=== PATIENT | female | born 1945 | race Caucasian/White ===

== ENCOUNTER 2022-12-31 23:33 | Inpatient (IN) | payer OTHER ==
[~2022-12-31] VITALS: Ht 162.6 cm; Wt 75.2 kg
[2023-01-01] VITALS (7 sets, daily range): BP systolic 95–154; BP diastolic 47–74; PULSE 57–85; RESP 18–20; TEMP 97.3–98.6; O2SAT 91–96
[2023-01-01] MEDS ORDERED: MORPHINE SULFATE INJ 2 MG/ml SYRG IV PRN (01:45)
[2023-01-01] MEDS ORDERED: NITROGLYCERIN 0.4 MG SL TAB SL PRN (01:45)
[2023-01-01] MEDS ORDERED: ONDANSETRON HCL 4 MG/2 ML VIAL IV PRN (01:45)
[2023-01-01] MEDS ORDERED: DOCUSATE SOD 100 MG CAP PO PRN (01:45)
[2023-01-01] MEDS ORDERED: DEXTROSE (50%) 50ML SYRG IV PRN (01:45)
[2023-01-01] MEDS ORDERED: ACETAMINOPHEN 325 MG TAB PO PRN (01:45)
[2023-01-01] MEDS ORDERED: OMEP10CA5 PO (03:34)
[2023-01-01] MEDS ORDERED: PARO1TAB33 PO (03:34)
[2023-01-01] MEDS ORDERED: GABA-1250 PO (03:34)
[2023-01-01] MEDS ORDERED: OXYB5TAB24 PO (03:34)
[2023-01-01] MEDS ORDERED: ATOR20TA50 PO (03:34)
[2023-01-01] MEDS ORDERED: ATEN50TA PO (03:34)
[2023-01-01] MEDS ORDERED: DULO-141 PO (03:34)
[2023-01-01] MEDS ORDERED: NAP500T PO (03:35)
[2023-01-01] MEDS ORDERED: BUPR150T8 PO (03:36)
[2023-01-01] MEDS ORDERED: CHOL20007 PO (03:43)
[2023-01-01] MEDS ORDERED: CALC600T49 PO (03:45)
[2023-01-01 05:01] LABS: Amphetamine Screen, Urine Neg (NEGATIVE); Barbiturate Scree,Urine Neg (NEGATIVE); Benzodiazephine Screen, Urine Neg (NEGATIVE); Cannabinoid Screen, Urine Neg (NEGATIVE); Cocaine Screen, Urine Neg (NEGATIVE); Opiate Scree,Urine Neg (NEGATIVE); Phencyclidine Screen, Urine Neg (NEGATIVE)
[2023-01-01 05:17] LABS: Urine Bacteria NONE SEEN /hpf (None Seen); Urine Blood Negative /uL (Negative); Urine Clarity Clear (Clear); Urine Color Colorless (Yellow); Urine Protein, UAD Negative (Negative); Urine Specific Gravity 1.003 (1.001-1.035); Urine Urobilinogen Normal (Negative); Urine WBC 6 /hpf (0 - 5); Urine pH 5.5 (5.0-8.0)
[2023-01-01] MEDS: SODIUM CHLORIDE 0.9% 1,000 ML IV SCH ×2 (06:30→17:05)
[2023-01-01 06:39] LABS: Chloride 108 mmol/L (98-107); Potassium 3.7 mmol/L (3.5-5.1); Sodium 142 mmol/L (136-145)
[2023-01-01 06:40] LABS: Anion Gap 6.1 (5-15); Calcium 8.8 mg/dL (8.7-10.4); Carbon Dioxide 27.9 mmol/L (20-30)
[2023-01-01 06:45] LABS: BUN/Creatinine Ratio 7.9 (10.0-20.0); Blood Urea Nitrogen 5 mg/dL (9-23); Glucose 92 mg/dL (74-106)
[2023-01-01] MEDS: CEFTRIAXONE SODIUM 2 GM in D5W 5% 100 ML IV SCH (07:00)
[2023-01-01] MEDS: InsuLIN REG 1unit/0.01ml Soln (100units/ml) SC SCH ×4 (07:00→21:36)
[2023-01-01] MEDS: ACCU-CHEK COMFORT CURVE STRIP VI SCH ×4 (07:03→21:35)
[2023-01-01 07:07] LABS: Basophils # (auto) 0.1 10 ^3/uL (0-0.2); Basophils % (auto) 0.9 % (0.0-2.0); Eosinophils # (auto) 0.2 10 ^3/uL (0-0.8); Eosinophils % (auto) 2.4 % (0.0-7.0); Hematocrit 39.2 % (36.0-46.0); Lymphocytes # (auto) 1.5 10 ^3/uL (0.4-5.4); Lymphocytes % (auto) 19.1 % (10.0-50.0); Mean Corpuscular Hemoglobin 25.9 pg (28.0-32.0); Mean Corpuscular Hgb Conc. 33.1 g/dL (32.0-36.0); Mean Corpuscular Volume 78.1 fL (80.0-100.0); Monocytes # (auto) 0.6 10 ^3/uL (0-1.3); Monocytes % (auto) 7.4 % (0.0-12.0); Neutrophils # (auto) 5.5 10 ^3/uL (1.6-8.6); Neutrophils % (auto) 70.2 % (37.0-80.0); Nucleated Red Blood Cells % 0.4 %; Red Blood Cells 5.02 10^6/uL (4.0-5.20); Red Cell Distribution Width 16.4 % (11.8-14.3); White Blood Cell 7.9 10^3/uL (4.4-10.8)
[2023-01-01] MEDS ORDERED: VANCOMYCIN PER PHARMACY 0 MG IV SCH (09:00)
[2023-01-01] MEDS ORDERED: VANCOMYCIN 1GM/250ML 250 ML IV ONE (09:30)
[2023-01-01] MEDS: DULoxetine HCL 30 MG CAP PO SCH (09:39)
[2023-01-01] MEDS: ATENOLOL 50 MG TAB PO SCH (09:40)
[2023-01-01] MEDS: FAMOTIDINE 20 MG TAB PO SCH (09:40)
[2023-01-01] MEDS: OXYBUTYNIN CHL 5 MG TAB PO SCH ×2 (09:40→21:27)
[2023-01-01 09:49] LABS: CRP High Sensitivity 1.28 mg/dL (<1.0)
[2023-01-01 09:59] LABS: Erythrocyte Sedimentation Rate 6 mm/hr (0-20)
[2023-01-01] MEDS ORDERED: PANTOPRAZOLE 40 MG/10 ML VIAL INJ IV SCH (10:00)
[2023-01-01] MEDS: GABAPENTIN 300 MG CAP PO SCH ×2 (14:27→21:28)
[2023-01-01] MEDS: ATORVASTATIN 20 MG TAB PO SCH (21:28)
[2023-01-01] MEDS: MUPIROCIN 2% OINT 15gm or 22gm FOR MRSA NARES EACHNOSTRI SCH (21:33)
[2023-01-02] VITALS (7 sets, daily range): BP systolic 101–140; BP diastolic 53–116; PULSE 61–74; RESP 18–20; TEMP 97.1–98; O2SAT 64–99
[2023-01-02] MEDS: SODIUM CHLORIDE 0.9% 1,000 ML IV SCH ×2 (04:23→16:58)
[2023-01-02] MEDS: GABAPENTIN 300 MG CAP PO SCH ×3 (06:00→22:28)
[2023-01-02] MEDS: CEFTRIAXONE SODIUM 2 GM in D5W 5% 100 ML IV SCH (06:11)
[2023-01-02] MEDS: ACCU-CHEK COMFORT CURVE STRIP VI SCH ×4 (06:25→22:33)
[2023-01-02] MEDS: InsuLIN REG 1unit/0.01ml Soln (100units/ml) SC SCH ×4 (06:26→22:00)
[2023-01-02 06:36] LABS: Anion Gap 7.1 (5-15); Calcium 8.7 mg/dL (8.5-10.1); Carbon Dioxide 24.9 mmol/L (20-30); Chloride 110 mmol/L (98-107); Potassium 3.5 mmol/L (3.5-5.1); Sodium 142 mmol/L (136-145)
[2023-01-02 06:42] LABS: Basophils # (auto) 0.1 10 ^3/uL (0-0.2); Eosinophils # (auto) 0.3 10 ^3/uL (0-0.8); Glucose 132 mg/dL (74-106); Lymphocytes # (auto) 1.1 10 ^3/uL (0.4-5.4); Monocytes # (auto) 0.6 10 ^3/uL (0-1.3); White Blood Cell 8.8 10^3/uL (4.4-10.8)
[2023-01-02 06:44] LABS: BUN/Creatinine Ratio 8.8 (10.0-20.0); Basophils % (auto) 0.9 % (0.0-2.0); Blood Urea Nitrogen < 5 mg/dL (9-23); Eosinophils % (auto) 3.1 % (0.0-7.0); Hematocrit 39.1 % (36.0-46.0); Hemoglobin 12.6 g/dL (12.2-16.2); Lymphocytes % (auto) 12.4 % (10.0-50.0); Mean Corpuscular Hemoglobin 25.8 pg (28.0-32.0); Mean Corpuscular Hgb Conc. 32.2 g/dL (32.0-36.0); Mean Corpuscular Volume 80.2 fL (80.0-100.0); Monocytes % (auto) 7.1 % (0.0-12.0); Neutrophils # (auto) 6.8 10 ^3/uL (1.6-8.6); Neutrophils % (auto) 76.5 % (37.0-80.0); Nucleated Red Blood Cells % 0.1 %; Red Blood Cells 4.88 10^6/uL (4.0-5.20); Red Cell Distribution Width 16.4 % (11.8-14.3)
[2023-01-02 07:10] LABS: Prothrombin Time 10.5 sec (9.3-11.8)
[2023-01-02] MEDS ORDERED: BUPIVACAINE 0.25% INJ 50ML VIAL ONE (08:16)
[2023-01-02] MEDS ORDERED: LIDOCAINE 1% HCL (LOCAL ANESTH.) INJ 20ML MDV ONE (08:16)
[2023-01-02] MEDS ORDERED: VANCOMYCIN 1GM/250ML 250 ML IV SCH (09:00)
[2023-01-02] MEDS ORDERED: MEPERIDINE HCL (25 MG/ML) 1ML VIAL ONE (09:05)
[2023-01-02] MEDS ORDERED: MIDAZOLAM HCL 2MG/2ML 2ml VIAL (1mg/ml) ONE (09:05)
[2023-01-02] MEDS ORDERED: fentaNYL CITRATE 100 MCG/2 ML VL ONE (09:05)
[2023-01-02] MEDS ORDERED: ACCU-CHEK COMFORT CURVE STRIP VI ONE (09:30)
[2023-01-02] MEDS ORDERED: ONDANSETRON HCL 4 MG/2 ML VIAL IV PRN (09:30)
[2023-01-02] MEDS ORDERED: ePHEDrine SULFATE 50 MG/ML AMP IV PRN (09:30)
[2023-01-02] MEDS ORDERED: MORPHINE SULFATE 4 MG/ML SYR/VIAL IV PRN (09:30)
[2023-01-02] MEDS ORDERED: LABETALOL HCL 5 MG/ML 4ML SYRINGE IV PRN (09:30)
[2023-01-02] MEDS ORDERED: MIDAZOLAM HCL 2MG/2ML 2ml VIAL (1mg/ml) IV PRN (09:30)
[2023-01-02] MEDS: OXYBUTYNIN CHL 5 MG TAB PO SCH ×2 (10:00→22:28)
[2023-01-02] MEDS: DULoxetine HCL 30 MG CAP PO SCH (10:00)
[2023-01-02] MEDS: MUPIROCIN 2% OINT 15gm or 22gm FOR MRSA NARES EACHNOSTRI SCH ×2 (10:00→22:33)
[2023-01-02] MEDS: ENOXAPARIN SOD 40 MG/0.4 ML SYRINGE SC SCH (10:00)
[2023-01-02] MEDS: FAMOTIDINE 20 MG TAB PO SCH (10:00)
[2023-01-02] MEDS: ATENOLOL 50 MG TAB PO SCH (10:00)
[2023-01-02] MEDS ORDERED: DexAMETHasone SOD PHOS 10MG/1ML VIAL INJ ONE (10:18)
[2023-01-02] MEDS ORDERED: PROPOFOL 10 MG/ML 20 ML IV ONE (10:18)
[2023-01-02] MEDS: VANCOMYCIN 1GM/250ML 250 ML IV SCH (18:30)
[2023-01-02] MEDS: ATORVASTATIN 20 MG TAB PO SCH (22:28)
[2023-01-02] MEDS: HYDROcodone-ACET 5/325MG TAB PO PRN (22:29)
[2023-01-03 05:00] VITALS: BP 122/68; PULSE 94; RESP 20; TEMP 98; O2SAT 98
[2023-01-03] MEDS: CEFTRIAXONE SODIUM 2 GM in D5W 5% 100 ML IV SCH (05:54)
[2023-01-03] MEDS: GABAPENTIN 300 MG CAP PO SCH ×3 (05:54→21:47)
[2023-01-03] MEDS: InsuLIN REG 1unit/0.01ml Soln (100units/ml) SC SCH ×4 (06:13→21:58)
[2023-01-03] MEDS: ACCU-CHEK COMFORT CURVE STRIP VI SCH ×4 (06:13→21:57)
[2023-01-03] MEDS: HYDROcodone-ACET 5/325MG TAB PO PRN ×2 (06:14→12:57)
[2023-01-03 07:02] LABS: Anion Gap 7.3 (5-15); Calcium 8.9 mg/dL (8.7-10.4); Carbon Dioxide 26.7 mmol/L (20-30); Chloride 106 mmol/L (98-107); Potassium 3.5 mmol/L (3.5-5.1); Sodium 140 mmol/L (136-145)
[2023-01-03 07:08] LABS: BUN/Creatinine Ratio 8.6 (10.0-20.0); Blood Urea Nitrogen 5 mg/dL (9-23); Glucose 127 mg/dL (74-106)
[2023-01-03 07:41] LABS: Basophils # (auto) 0 10 ^3/uL (0-0.2); Basophils % (auto) 0.3 % (0.0-2.0); Eosinophils # (auto) 0 10 ^3/uL (0-0.8); Eosinophils % (auto) 0.3 % (0.0-7.0); Hemoglobin 11.5 g/dL (12.2-16.2); Lymphocytes # (auto) 0.8 10 ^3/uL (0.4-5.4); Lymphocytes % (auto) 6.9 % (10.0-50.0); Mean Corpuscular Hemoglobin 25.8 pg (28.0-32.0); Mean Corpuscular Hgb Conc. 32.9 g/dL (32.0-36.0); Mean Corpuscular Volume 78.5 fL (80.0-100.0); Monocytes # (auto) 0.7 10 ^3/uL (0-1.3); Monocytes % (auto) 6.5 % (0.0-12.0); Neutrophils # (auto) 9.6 10 ^3/uL (1.6-8.6); Nucleated Red Blood Cells % 0.1 %; Red Blood Cells 4.46 10^6/uL (4.0-5.20); Red Cell Distribution Width 16.1 % (11.8-14.3); White Blood Cell 11.2 10^3/uL (4.4-10.8)
[2023-01-03 09:00] VITALS: BP 124/56; PULSE 97; RESP 12; TEMP 98.4; O2SAT 95
[2023-01-03] MEDS: SODIUM CHLORIDE 0.9% 1,000 ML IV SCH (09:29)
[2023-01-03] MEDS: VANCOMYCIN 1GM/250ML 250 ML IV SCH (09:29)
[2023-01-03] MEDS: ENOXAPARIN SOD 40 MG/0.4 ML SYRINGE SC SCH (09:30)
[2023-01-03] MEDS: OXYBUTYNIN CHL 5 MG TAB PO SCH ×2 (09:30→21:47)
[2023-01-03] MEDS: FAMOTIDINE 20 MG TAB PO SCH (09:30)
[2023-01-03] MEDS: DULoxetine HCL 30 MG CAP PO SCH (09:30)
[2023-01-03] MEDS: ATENOLOL 50 MG TAB PO SCH (09:32)
[2023-01-03] MEDS: MUPIROCIN 2% OINT 15gm or 22gm FOR MRSA NARES EACHNOSTRI SCH ×2 (09:33→21:57)
[2023-01-03 13:00] VITALS: BP 146/59; PULSE 82; RESP 16; TEMP 97.4; O2SAT 95
[2023-01-03 17:00] VITALS: BP 130/48; PULSE 63; RESP 14; TEMP 98.2; O2SAT 98
[2023-01-03 20:00] VITALS: PULSE 62; RESP 20; O2SAT 97
[2023-01-03] MEDS: ATORVASTATIN 20 MG TAB PO SCH (21:47)
[2023-01-03 22:00] VITALS: BP 134/59; PULSE 62; RESP 20; TEMP 98.5; O2SAT 97
[2023-01-04 05:00] VITALS: BP 106/84; PULSE 61; RESP 18; TEMP 98.1; O2SAT 96
[2023-01-04] MEDS: CEFTRIAXONE SODIUM 2 GM in D5W 5% 100 ML IV SCH (06:20)
[2023-01-04] MEDS: GABAPENTIN 300 MG CAP PO SCH ×3 (06:20→21:56)
[2023-01-04] MEDS: ACCU-CHEK COMFORT CURVE STRIP VI SCH ×4 (06:37→22:04)
[2023-01-04] MEDS: HYDROcodone-ACET 5/325MG TAB PO PRN ×3 (06:37→16:58)
[2023-01-04] MEDS: InsuLIN REG 1unit/0.01ml Soln (100units/ml) SC SCH ×4 (06:37→22:00)
[2023-01-04 07:31] LABS: Eosinophils # (auto) 0.1 10 ^3/uL (0-0.8); Eosinophils % (auto) 0.6 % (0.0-7.0); Hemoglobin 11.3 g/dL (12.2-16.2)
[2023-01-04 07:33] LABS: Basophils # (auto) 0.1 10 ^3/uL (0-0.2); Basophils % (auto) 0.7 % (0.0-2.0); Hematocrit 34.4 % (36.0-46.0); Lymphocytes % (auto) 11.4 % (10.0-50.0); Mean Corpuscular Hemoglobin 25.9 pg (28.0-32.0); Mean Corpuscular Volume 78.4 fL (80.0-100.0); Monocytes % (auto) 10.7 % (0.0-12.0); Neutrophils % (auto) 76.6 % (37.0-80.0); Red Blood Cells 4.38 10^6/uL (4.0-5.20); Red Cell Distribution Width 15.9 % (11.8-14.3); White Blood Cell 9.1 10^3/uL (4.4-10.8)
[2023-01-04 08:10] LABS: Chloride 107 mmol/L (98-107); Potassium 3.1 mmol/L (3.5-5.1); Sodium 141 mmol/L (136-145)
[2023-01-04 08:11] LABS: Anion Gap 7.3 (5-15); Calcium 8.8 mg/dL (8.5-10.1); Carbon Dioxide 26.7 mmol/L (20-30)
[2023-01-04 08:16] LABS: BUN/Creatinine Ratio 10.9 (10.0-20.0); Blood Urea Nitrogen 6 mg/dL (9-23); Glucose 94 mg/dL (74-106)
[2023-01-04 09:00] VITALS: BP 110/51; PULSE 56; RESP 15; TEMP 97.6; O2SAT 95
[2023-01-04] MEDS: FAMOTIDINE 20 MG TAB PO SCH (10:51)
[2023-01-04] MEDS: DULoxetine HCL 30 MG CAP PO SCH (10:51)
[2023-01-04] MEDS: CLOPIDOGREL BISULFATE 75 MG TAB PO SCH (10:51)
[2023-01-04] MEDS: OXYBUTYNIN CHL 5 MG TAB PO SCH ×2 (10:51→21:54)
[2023-01-04] MEDS: ENOXAPARIN SOD 40 MG/0.4 ML SYRINGE SC SCH (10:52)
[2023-01-04] MEDS: ATENOLOL 50 MG TAB PO SCH (10:52)
[2023-01-04] MEDS: MUPIROCIN 2% OINT 15gm or 22gm FOR MRSA NARES EACHNOSTRI SCH ×2 (10:54→22:04)
[2023-01-04] MEDS: VANCOMYCIN 1GM/250ML 250 ML IV SCH (11:47)
[2023-01-04 13:00] VITALS: BP 113/48; PULSE 70; RESP 16; TEMP 97.2; O2SAT 95
[2023-01-04 17:00] VITALS: BP 98/74; PULSE 61; RESP 15; TEMP 98.6; O2SAT 95
[2023-01-04 20:00] VITALS: PULSE 78; RESP 22; O2SAT 98
[2023-01-04] MEDS ORDERED: POTASSIUM CHL 20 Meq TABLET PO ONE (21:15)
[2023-01-04] MEDS: ATORVASTATIN 20 MG TAB PO SCH (21:54)
[2023-01-04 22:00] VITALS: BP 118/89; PULSE 78; RESP 22; TEMP 98.4; O2SAT 98
[2023-01-05] VITALS (8 sets, daily range): BP systolic 116–141; BP diastolic 55–81; PULSE 54–76; RESP 16–20; TEMP 98.1–98.3; O2SAT 92–98
[2023-01-05] MEDS: VANCOMYCIN 1GM/250ML 250 ML IV SCH ×2 (03:49→20:37)
[2023-01-05] MEDS: CEFTRIAXONE SODIUM 2 GM in D5W 5% 100 ML IV SCH (05:36)
[2023-01-05] MEDS: GABAPENTIN 300 MG CAP PO SCH ×3 (06:06→23:00)
[2023-01-05] MEDS: ACCU-CHEK COMFORT CURVE STRIP VI SCH ×4 (06:09→23:00)
[2023-01-05] MEDS: InsuLIN REG 1unit/0.01ml Soln (100units/ml) SC SCH ×4 (06:10→23:00)
[2023-01-05] MEDS: HYDROcodone-ACET 5/325MG TAB PO PRN ×2 (10:37→18:02)
[2023-01-05] MEDS: DULoxetine HCL 30 MG CAP PO SCH (10:37)
[2023-01-05] MEDS: ATENOLOL 50 MG TAB PO SCH (10:38)
[2023-01-05] MEDS: OXYBUTYNIN CHL 5 MG TAB PO SCH ×2 (10:38→23:00)
[2023-01-05] MEDS: ENOXAPARIN SOD 40 MG/0.4 ML SYRINGE SC SCH (10:38)
[2023-01-05] MEDS: FAMOTIDINE 20 MG TAB PO SCH (10:38)
[2023-01-05] MEDS: CLOPIDOGREL BISULFATE 75 MG TAB PO SCH (10:38)
[2023-01-05] MEDS: MUPIROCIN 2% OINT 15gm or 22gm FOR MRSA NARES EACHNOSTRI SCH ×2 (10:40→23:02)
[2023-01-05] MEDS ORDERED: BACDST PO (12:12)
[2023-01-05] MEDS ORDERED: ATOR20TA50 PO (12:12)
[2023-01-05] MEDS ORDERED: CLOP75TA70 PO (12:12)
[2023-01-05] MEDS: ATORVASTATIN 20 MG TAB PO SCH (23:00)
[2023-01-06] MEDS: HYDROcodone-ACET 5/325MG TAB PO PRN ×3 (03:27→17:17)
[2023-01-06 05:00] VITALS: BP 121/80; PULSE 64; RESP 16; TEMP 98.2; O2SAT 93
[2023-01-06] MEDS: GABAPENTIN 300 MG CAP PO SCH ×2 (05:00→14:00)
[2023-01-06] MEDS: ACCU-CHEK COMFORT CURVE STRIP VI SCH ×3 (06:09→17:00)
[2023-01-06] MEDS: InsuLIN REG 1unit/0.01ml Soln (100units/ml) SC SCH ×3 (06:30→17:00)
[2023-01-06 08:00] VITALS: PULSE 55; RESP 18; O2SAT 98
[2023-01-06 09:00] VITALS: BP 138/73; PULSE 58; RESP 19; TEMP 97.4; O2SAT 98
[2023-01-06] MEDS: ATENOLOL 50 MG TAB PO SCH ×2 (10:00→17:16)
[2023-01-06] MEDS: MUPIROCIN 2% OINT 15gm or 22gm FOR MRSA NARES EACHNOSTRI SCH (10:00)
[2023-01-06] MEDS: FAMOTIDINE 20 MG TAB PO SCH (10:24)
[2023-01-06] MEDS: OXYBUTYNIN CHL 5 MG TAB PO SCH (10:25)
[2023-01-06] MEDS: DULoxetine HCL 30 MG CAP PO SCH (10:25)
[2023-01-06] MEDS: CLOPIDOGREL BISULFATE 75 MG TAB PO SCH (10:25)
[2023-01-06] MEDS: ENOXAPARIN SOD 40 MG/0.4 ML SYRINGE SC SCH (10:25)
[2023-01-06 13:00] VITALS: BP 129/54; PULSE 57; RESP 19; TEMP 97.9; O2SAT 95
[2023-01-06] MEDS ORDERED: VANCOMYCIN 1GM/250ML 250 ML IV SCH (13:00)
[2023-01-06 17:00] VITALS: BP 157/62; PULSE 56; RESP 19; TEMP 97.5; O2SAT 96
[2023-01-06 20:00] VITALS: PULSE 53; RESP 20; O2SAT 95
== END 2023-01-06 22:00 | disposition home health service (06) | DRG 617 ==
LOC: UNDOADMIN 01-01 01:31 → WEST WING 01-01 01:31
PROVIDERS: ADMIT Nurse Practitioner Family; ATTEND Hospitalist
PROC: 0Y6M0ZC Detachment at Right Foot, Partial 3rd Ray, Open Approach (ICD-10-PCS; principal; 2023-01-02 09:08)
DX: E11.69 Type 2 diabetes mellitus with other specified complication (principal); L03.115 Cellulitis of right lower limb; M86.171 Other acute osteomyelitis, right ankle and foot; N39.0 Urinary tract infection, site not specified; E11.65 Type 2 diabetes mellitus with hyperglycemia; I70.201 Unspecified atherosclerosis of native arteries of extremities, right leg; I10 Essential (primary) hypertension; Z86.14 Personal history of Methicillin resistant Staphylococcus aureus infection; Z89.429 Acquired absence of other toe(s), unspecified side
CPT/HCPCS: 36415; 73630; 73718; 80048; 80061; 80202; 80307; 81001; 82962; 83036; 85025; 85610; 85652; 85730; 86141; 87040; 87070; 87075; 87077; 87081; 87186; 87205; 93005; 93925; 97110; 97163; 97530; G0378; J0696; J1100; J1815; J2001; J2250; J2704; J3490; J7060

== ENCOUNTER 2023-03-25 03:27 | Inpatient (IN) | payer BC, OTHER ==
[~2023-03-25] VITALS: Ht 160 cm; Wt 71.4 kg
[~2023-03-25 03:27] MED LIST: ATEN50TA PO; ATOR20TA50 PO; BACDST PO; BUPR150T8 PO; CALC600T49 PO; CHOL20007 PO; CLOP75TA70 PO; DULO-141 PO; GABA-1250 PO; NAP500T PO; OMEP10CA5 PO; OXYB5TAB24 PO; PARO1TAB33 PO
[2023-03-26] VITALS (8 sets, daily range): BP systolic 124–154; BP diastolic 34–106; PULSE 71–92; RESP 17–20; TEMP 97.9–99.1; O2SAT 92–100
[2023-03-26] MEDS ORDERED: ACETAMINOPHEN 325 MG TAB PO PRN (01:15)
[2023-03-26] MEDS ORDERED: MORPHINE SULFATE INJ 2 MG/ml SYRG IV PRN (01:15)
[2023-03-26] MEDS ORDERED: hydrALAZINE HCL 10 MG TAB PO PRN (01:15)
[2023-03-26] MEDS ORDERED: DEXTROSE (50%) 50ML SYRG IV PRN (01:15)
[2023-03-26] MEDS ORDERED: ONDANSETRON HCL 4 MG/2 ML VIAL IV PRN (01:15)
[2023-03-26] MEDS ORDERED: VANCOMYCIN PER PHARMACY 0 MG IV SCH (01:15)
[2023-03-26] MEDS ORDERED: HYDROcodone-ACET 5/325MG TAB PO PRN (01:15)
[2023-03-26] MEDS: InsuLIN REG 1unit/0.01ml Soln (100units/ml) SC SCH ×4 (07:00→22:00)
[2023-03-26] MEDS ORDERED: VANCOMYCIN 1GM/250ML 250 ML IV ONE (07:30)
[2023-03-26] MEDS: ACCU-CHEK COMFORT CURVE STRIP VI SCH ×4 (09:17→22:00)
[2023-03-26] MEDS: cefTRIAXone 1GM/50ML D5W 50 ML IV SCH (09:19)
[2023-03-26 10:40] LABS: Basophils # (auto) 0.1 10 ^3/uL (0-0.2); Eosinophils # (auto) 0.2 10 ^3/uL (0-0.8); Hemoglobin 11.2 g/dL (12.2-16.2); Monocytes # (auto) 0.6 10 ^3/uL (0-1.3); White Blood Cell 8.7 10^3/uL (4.4-10.8)
[2023-03-26 10:42] LABS: Basophils % (auto) 0.7 % (0.0-2.0); Eosinophils % (auto) 2.3 % (0.0-7.0); Hematocrit 34.7 % (36.0-46.0); Lymphocytes # (auto) 0.9 10 ^3/uL (0.4-5.4); Lymphocytes % (auto) 9.8 % (10.0-50.0); Mean Corpuscular Hgb Conc. 32.2 g/dL (32.0-36.0); Mean Corpuscular Volume 74.7 fL (80.0-100.0); Monocytes % (auto) 6.4 % (0.0-12.0); Neutrophils % (auto) 80.8 % (37.0-80.0); Red Blood Cells 4.64 10^6/uL (4.0-5.20); Red Cell Distribution Width 17.7 % (11.8-14.3)
[2023-03-26 10:45] LABS: Chloride 112 mmol/L (98-107); Sodium 143 mmol/L (136-145)
[2023-03-26 10:46] LABS: Anion Gap 6 (5-15); Calcium 8.9 mg/dL (8.5-10.1); Carbon Dioxide 25 mmol/L (20-30)
[2023-03-26 10:51] LABS: BUN/Creatinine Ratio 15.6 (10.0-20.0); Blood Urea Nitrogen 10 mg/dL (9-23); Glucose 101 mg/dL (74-106)
[2023-03-26 16:16] LABS: CRP High Sensitivity 3.1 mg/dL (<1.0)
[2023-03-26 16:17] LABS: Erythrocyte Sedimentation Rate 25 mm/hr (0-20)
[2023-03-26] MEDS: SODIUM CHLORIDE 0.9% 1,000 ML IV SCH (16:55)
[2023-03-27] VITALS (7 sets, daily range): BP systolic 110–182; BP diastolic 62–86; PULSE 64–96; RESP 17–18; TEMP 36.6; O2SAT 93–98
[2023-03-27] MEDS ORDERED: VANCOMYCIN 1GM/250ML 250 ML IV SCH (04:00)
[2023-03-27] MEDS: InsuLIN REG 1unit/0.01ml Soln (100units/ml) SC SCH ×3 (06:10→17:00)
[2023-03-27] MEDS: ACCU-CHEK COMFORT CURVE STRIP VI SCH ×3 (06:10→17:07)
[2023-03-27 06:19] LABS: Basophils # (auto) 0.1 10 ^3/uL (0-0.2); Eosinophils # (auto) 0.3 10 ^3/uL (0-0.8); Hemoglobin 10.9 g/dL (12.2-16.2); Monocytes # (auto) 0.6 10 ^3/uL (0-1.3)
[2023-03-27 06:22] LABS: Basophils % (auto) 0.8 % (0.0-2.0); Eosinophils % (auto) 3.6 % (0.0-7.0); Hematocrit 33.9 % (36.0-46.0); Lymphocytes % (auto) 13.4 % (10.0-50.0); Mean Corpuscular Hgb Conc. 32.2 g/dL (32.0-36.0); Mean Corpuscular Volume 74.6 fL (80.0-100.0); Neutrophils # (auto) 5.4 10 ^3/uL (1.6-8.6); Neutrophils % (auto) 74.2 % (37.0-80.0); Red Blood Cells 4.55 10^6/uL (4.0-5.20); Red Cell Distribution Width 17.7 % (11.8-14.3); White Blood Cell 7.3 10^3/uL (4.4-10.8)
[2023-03-27 06:23] LABS: Chloride 111 mmol/L (98-107); Potassium 4.3 mmol/L (3.5-5.1); Sodium 142 mmol/L (136-145)
[2023-03-27 06:24] LABS: Anion Gap 8 (5-15); Carbon Dioxide 23 mmol/L (20-30)
[2023-03-27 06:25] LABS: Calcium 7.4 mg/dL (8.5-10.1)
[2023-03-27 06:30] LABS: Blood Urea Nitrogen 9 mg/dL (9-23); Glucose 113 mg/dL (74-106)
[2023-03-27 06:31] LABS: INR 1.01 (0.9-1.15); Partial Thromboplastin Time 36.6 SEC (24.5-34.5); Prothrombin Time 10.6 sec (9.3-11.8)
[2023-03-27] MEDS: SODIUM CHLORIDE 0.9% 1,000 ML IV SCH (10:05)
[2023-03-27] MEDS: cefTRIAXone 1GM/50ML D5W 50 ML IV SCH (10:05)
[2023-03-27] MEDS ORDERED: CLOP75TA70 PO (12:00)
[2023-03-27] MEDS ORDERED: ATOR20TA50 PO (12:00)
[2023-03-27] MEDS ORDERED: BACDST PO (12:03)
[2023-03-27] MEDS ORDERED: LIDOCAINE 1% (LOCAL ANESTH.) PF 5ml SDV ID ONE (13:00)
[2023-03-27] MEDS ORDERED: ATORVASTATIN 20 MG TAB PO SCH (22:00)
[2023-03-27] MEDS ORDERED: DAKINS QUARTER STR 0.125% (NaHypochlorite) 473 ML TOPICAL SOL TOP SCH (22:00)
[2023-03-27] MEDS ORDERED: SODIUM CHLOR 0.9% PF (SALINE LOCK) 10ML VIAL/SYR IV SCH (22:00)
[2023-03-28] MEDS ORDERED: ASPirin-EC 81 mg tab PO SCH (10:00)
== END 2023-03-27 19:00 | disposition home health service (06) | DRG 623 ==
LOC: TELE-CENTR 03-26 01:24
PROVIDERS: ADMIT Nurse Practitioner Family; ATTEND Nurse Practitioner Family
PROC: 0JBQ0ZZ Excision of Right Foot Subcutaneous Tissue and Fascia, Open Approach (ICD-10-PCS; principal; 2023-03-27)
PROC: 0JBR0ZZ Excision of Left Foot Subcutaneous Tissue and Fascia, Open Approach (ICD-10-PCS; 2023-03-27)
PROC: 02HV33Z Insertion of Infusion Device into Superior Vena Cava, Percutaneous Approach (ICD-10-PCS; 2023-03-27)
PROC: B548ZZA Ultrasonography of Superior Vena Cava, Guidance (ICD-10-PCS; 2023-03-27)
DX: E11.621 Type 2 diabetes mellitus with foot ulcer (principal); M86.171 Other acute osteomyelitis, right ankle and foot; E11.69 Type 2 diabetes mellitus with other specified complication; E78.5 Hyperlipidemia, unspecified; E11.51 Type 2 diabetes mellitus with diabetic peripheral angiopathy without gangrene; E11.40 Type 2 diabetes mellitus with diabetic neuropathy, unspecified; I11.0 Hypertensive heart disease with heart failure; J44.9 Chronic obstructive pulmonary disease, unspecified; E11.42 Type 2 diabetes mellitus with diabetic polyneuropathy; L97.522 Non-pressure chronic ulcer of other part of left foot with fat layer exposed; L97.512 Non-pressure chronic ulcer of other part of right foot with fat layer exposed
CPT/HCPCS: 36415; 36569; 71045; 73718; 80048; 80061; 82962; 83036; 85025; 85610; 85652; 85730; 86141; 87040; 87077; 87186; 87205; 93926; 97163; G0378; J0696

== ENCOUNTER 2023-04-06 15:00 | Emergency (ER) | payer OTHER ==
[~2023-04-06] VITALS: Ht 160 cm; Wt 67.9 kg
[2023-04-06 16:06] LABS: Basophils # (auto) 0.1 10 ^3/uL (0-0.2); Eosinophils # (auto) 0.2 10 ^3/uL (0-0.8); Eosinophils % (auto) 2.4 % (0.0-7.0); Hematocrit 35.9 % (36.0-46.0); Hemoglobin 11.2 g/dL (12.2-16.2); Lymphocytes # (auto) 1.1 10 ^3/uL (0.4-5.4); Lymphocytes % (auto) 14.8 % (10.0-50.0); Monocytes # (auto) 0.4 10 ^3/uL (0-1.3); Monocytes % (auto) 5.2 % (0.0-12.0); Neutrophils # (auto) 5.5 10 ^3/uL (1.6-8.6); Neutrophils % (auto) 75.6 % (37.0-80.0); Nucleated Red Blood Cells % 0.1 %; Red Blood Cells 4.86 10^6/uL (4.0-5.20); White Blood Cell 7.3 10^3/uL (4.4-10.8)
[2023-04-06 16:15] LABS: INR 1.04 (0.9-1.15); Partial Thromboplastin Time 34.4 SEC (24.5-34.5); Prothrombin Time 10.9 sec (9.3-11.8)
[2023-04-06 16:27] LABS: Chloride 103 mmol/L (98-107); Potassium 4.6 mmol/L (3.5-5.1); Sodium 136 mmol/L (136-145)
[2023-04-06 16:28] LABS: Anion Gap 9 (5-15); Calcium 9.9 mg/dL (8.5-10.1); Carbon Dioxide 24 mmol/L (20-30)
[2023-04-06 16:33] LABS: Blood Urea Nitrogen 13 mg/dL (9-23); Glucose 124 mg/dL (74-106)
[2023-04-06] MEDS ORDERED: SODIUM CHLOR 0.9% PF (SALINE LOCK) 10ML VIAL/SYR IV SCH (22:00)
[2023-04-06 22:10] VITALS: BP 174/82; PULSE 88; RESP 16; TEMP 97.9; O2SAT 92
== END 2023-04-06 22:24 | disposition home or self-care (01) ==
LOC: ER 15:00
DX: Z45.2 Encounter for adjustment and management of vascular access device (principal); I10 Essential (primary) hypertension; E11.9 Type 2 diabetes mellitus without complications; E78.5 Hyperlipidemia, unspecified; J44.9 Chronic obstructive pulmonary disease, unspecified; Z90.710 Acquired absence of both cervix and uterus; Z79.01 Long term (current) use of anticoagulants; Z79.899 Other long term (current) drug therapy
CPT/HCPCS: 36415; 36569; 80048; 85025; 85610; 85730; 99283; C1751; J7050